=== PATIENT | female | born 1950 | race Caucasian/White ===

== ENCOUNTER → 2016-09-01 | Outpatient (CLI) | payer OTHER, BC ==
[~2016-09-01] MED LIST: ADVIN25050; ALBUAER2; AVP150; ESTR0.3T
--- NOTE | 2016-09-01 15:53 | MAMMOGRAPHY REPORT ---
BILATERAL DIGITAL SCREENING MAMMOGRAM TOMOSYNTHESIS WITH CAD: 09/01/2016 CLINICAL HISTORY: Routine screening. Patient has no complaints. TECHNIQUE: Breast tomosynthesis in addition to standard 2D mammography was performed. Current study was also evaluated with a Computer Aided Detection (CAD) system. COMPARISON: Comparison is made to exams dated: 05/06/2015 mammogram, 03/04/2014 mammogram, 3 mammogram, 12/23/2011 mammogram, 12/17/2010 mammogram, and 12/14/2009 mammogram - [facility]. BREAST COMPOSITION: There are scattered areas of fibroglandular density in both breasts. FINDINGS: No suspicious masses, calcifications, or areas of architectural distortion are noted in e ither breast. There has been no significant interval change compared to prior exams. IMPRESSION: ACR BI-RADS CATEGORY 1: NEGATIVE There is no mammographic evidence of malignancy. A 1 year screening mammogram is recommended. The p atient will receive written notification of the results. Approximately 10% of breast cancers are not detected with mammography. A negative mammographic repor t should not delay biopsy if a clinically suggestive mass is present. Samina Oates M.D. ah/:09/01/2016 14:14:18 Mixed Crop Farmer: Ginger Stapleton, [facility] letter sent: Normal 1/2 BI-RADS Code: ACR BI-RADS Category 1: Negative
== END | disposition home or self-care (01) ==
LOC: C.MAMM 13:41
PROVIDERS: ATTEND Obstetrics & Gynecology
DX: Z12.31 Encounter for screening mammogram for malignant neoplasm of breast (principal)

== ENCOUNTER → 2016-11-22 | Outpatient (CLI) | payer OTHER, BC ==
[2016-11-22 16:12] LABS: BASO % 0.4 %; BASO ABS # 0.02 K/uL (0-0.2); COMPLETE YES; EOS % 11.7 %; HEMATOCRIT 39.4 % (37-47); LYMPH % 25.5 %; LYMPH ABS # 1.26 K/uL (1.2-3.4); MEAN CELL VOLUME 90.6 fL (80-100); MEAN CORPUSCULAR HEMOGLOBIN 30.6 pg (25-34); MEAN CORPUSCULAR HGB CONC 33.8 g/dl (32-36); MEAN PLATELET VOLUME 9.5 fL (7.4-10.4); MONO % 10.5 %; NEUT % 51.9 %; PLATELET COUNT 314 K/uL (130-400); RED BLOOD COUNT 4.35 M/uL (4.2-5.4); WHITE BLOOD COUNT 4.95 K/uL (4.8-10.8)
[2016-11-22 16:31] LABS: ALB/GLOB RATIO 1.2 (0.9-2); ALT/SGPT 22 U/L (12-78); AST/SGOT 15 U/L (15-37); BLOOD UREA NITROGEN 17 mg/dl (7-18); BUN/CREATININE RATIO 22.6 (10-20); CALCIUM 9.1 mg/dl (8.5-10.1); CARBON DIOXIDE 26 mmol/L (21-32); CHLORIDE 105 mmol/L (98-107); CHOLESTEROL 219 mg/dl (0-200); CREATININE 0.75 mg/dl (0.60-1.20); GLUCOSE 93 mg/dl (70-99); POTASSIUM 3.9 mmol/L (3.5-5.1); SODIUM 136 mmol/L (136-145)
[2016-11-22 16:40] LABS: ALKALINE PHOSPHATASE 89 U/L (45-117); CHOLESTEROL/HDL RATIO 2.8; FERRITIN 30.2 ng/ml (8.0-388.0); HDL CHOLESTEROL 78 mg/dl; LDL CHOLESTEROL CALCULATED 114 mg/dl; TOTAL IRON BINDING CAPACITY 326 mcg/dl (250-450); TRIGLYCERIDES 134 mg/dl (0-150); VERY LOW DENSITY LIPOPROT CALC 27 mg/dl
[2016-11-26 09:36] LABS: MICROSOMAL AB 15 IU/ML (<9); T3 REVERSE **TC 90963 9 ng/dL (8-25)
== END | disposition home or self-care (01) ==
LOC: C.LAB 15:29
PROVIDERS: ATTEND Family Medicine
DX: I10 Essential (primary) hypertension (principal); E55.9 Vitamin D deficiency, unspecified; K90.9 Intestinal malabsorption, unspecified; E03.9 Hypothyroidism, unspecified; E72.11 Homocystinuria

== ENCOUNTER → 2017-08-23 | Outpatient (CLI) | payer OTHER, BC ==
--- NOTE | 2017-08-23 13:42 | DIAGNOSTIC IMAGING REPORT ---
FUSION CT SINUSES W/O HISTORY: 67 years-old Female J30.9 Allergic rhinitisPATIENT HAS 2-3 SINUS INFECTIONS YEARLY. Acute allergic rhinitis COMPARISON: Brain MRI 03/07/2013 TECHNIQUE: Multiple axial CT images of the paranasal sinuses were obtained without the use of IV contrast. A dose lowering technique was used consistent with the principals of MADELINE. FINDINGS: Imaged intracranial structures demonstrate no acute abnormality. Soft tissues and orbits are unremarkable. Bones appear intact without acute facial bone fracture identified. Mastoid air cells and middle ear cavities are clear. Mild mucosal thickening about the maxillary and ethmoid sinuses with 6 mm polypoid mucosal thickening involving the lateral right maxillary antrum. Minimal mucosal thickening of the anterior sphenoid sinuses. Minimal mucosal thickening about the left frontal sinus. The right frontal sinus is patent. There is minimal mucosal thickening about the right sphenoethmoidal recess. Left sphenoethmoidal recess is unremarkable and patent. The bilateral frontoethmoidal recesses and maxillary ostiomeatal units are widely patent. There is a small right imelda bullosa. Danette raquel appears normal. There is minimal rightward bowing and spurring of the nasal septum. Mild mucosal thickening of the nasal turbinates. IMPRESSION: 1. Minimal paranasal sinus disease as above with partial opacification of the right sphenoethmoidal recess. The remaining nasal outflow tracts are widely patent. 2. Minimal rightward bowing and spurring of the nasal septum. 3. Small right imelda bullosa. The above report was generated using voice recognition software. It may contain grammatical, syntax or spelling errors. Electronically signed by: Dwayne Laird M.D. 08/23/2017 1:40 PM Dictated Date/Time: 08/23/2017 1:29 PM
== END | disposition home or self-care (01) ==
LOC: C.CTS 13:05
PROVIDERS: ATTEND Physician Assistant
DX: J30.9 Allergic rhinitis, unspecified (principal); J34.89 Other specified disorders of nose and nasal sinuses

== ENCOUNTER → 2017-11-28 | Outpatient (CLI) | payer OTHER, BC ==
--- NOTE | 2017-11-29 13:51 | MAMMOGRAPHY REPORT ---
BILATERAL DIGITAL SCREENING MAMMOGRAM TOMOSYNTHESIS WITH CAD: 11/28/2017 CLINICAL HISTORY: Routine screening. TECHNIQUE: The study was acquired using full field digital technology and interpreted from soft copy. Breast tomosynthesis in addition to standard 2D mammography was performed. Current study was also ev aluated with a Computer Aided Detection (CAD) system. COMPARISON: Comparison is made to exams dated: 09/01/2016 mammogram, 05/06/2015 mammogram, 03/04/2014 mammogram, 03/01/2013 mammogram, 12/23/2011 mammogram, and 12/17/2010 mammogram - [facility]. BREAST COMPOSITION: There are scattered areas of fibroglandular density in both breasts. FINDINGS: Stable asymmetry in the lateral left breast. No suspicious mass, architectural distortion o r cluster of microcalcifications is seen. IMPRESSION: ACR BI-RADS CATEGORY 1: NEGATIVE There is no mammographic evidence of malignancy. A 1 year screening mammogram is recommended.( [id number]) The patient will receive written notification of the results. Some breast cancers are not detected with mammography. A negative mammographic report should not kyler y biopsy if a clinically suggestive mass is present. Yennifer Salcedo M.D. ay/:11/28/2017 16:35:11 Tool Design Engineer: RT Cy(Alicia)(M), [facility] letter sent: Normal 1/2 BI-RADS Code: ACR BI-RADS Category 1: Negative
== END | disposition home or self-care (01) ==
LOC: C.MAMM 15:58
PROVIDERS: ATTEND Obstetrics & Gynecology
DX: Z12.31 Encounter for screening mammogram for malignant neoplasm of breast (principal)